=== PATIENT | female | born 1985 | race Caucasian/White ===

== ENCOUNTER 2020-02-22 10:58 | Emergency (ER) | payer BC ==
--- NOTE | 2020-02-22 11:38 | EDM.PDOC ---
ED HPI GENERAL MEDICAL PROBLEM - General Stated Complaint: HIGH BLOOD PRESSURE Time Seen by Provider: 02/22/20 11:15 Source of Information: Reports: Patient History Limitations: Reports: No Limitations - History of Present Illness INITIAL COMMENTS - FREE TEXT/NARRATIVE: c/o discomfort/burning in upper chest x 3w inc'd 1w ago and thought it was GERD went to clinic this AM, saw Patricia Donnelly, given NTG SL x 2 which did not help, has minimal discomfort now with EKG wnl with SR 68 pt ate supper last night, however said yesterday "was a blur", did eat bfast this AM no CP when she could up, then had the ache in the upper sternal area into neck R and L lateral neck, sometimes has pain radiating down her sternum no L sided CP, no arm pain dec'd with movement, present for a few minutes at a time pt's 50 yo aunt and godmother suddenly yesterday homeschooling 5 children (3 stepchildren, 2 of her own) as her mother has health, lost his job, has inc'd stress, PCP Dr Kebede referred her to counseling, says she is under inc'd stress BP 163/96 which has pt worried, "I have never had high BP" only med is fluoxetine smokes 10-11 cigs/d since age 16yo, 5y ago stopped for 2y - Related Data Allergies Allergy/AdvReac Type Severity Reaction Status Date / Time No Known Allergies Allergy Verified 06/02/14 11:04 Home Meds: Home Meds FLUoxetine [PROzac] 20 mg PO DAILY 06/02/14 [History] Past Medical History - Past Health History Medical/Surgical History: Denies Medical/Surgical History ED ROS GENERAL - Review of Systems Review Of Systems: See Below Constitutional: Reports: No Symptoms HEENT: Reports: No Symptoms Respiratory: Reports: No Symptoms Cardiovascular: Reports: No Symptoms Endocrine: Reports: No Symptoms GI/Abdominal: Reports: No Symptoms : Reports: No Symptoms Musculoskeletal: Reports: No Symptoms Skin: Reports: No Symptoms Neurological: Reports: No Symptoms Psychiatric: Reports: Anxiety Hematologic/Lymphatic: Reports: No Symptoms Immunologic: Reports: No Symptoms ED EXAM, GENERAL - Physical Exam Exam: See Below Exam Limited By: No Limitations General Appearance: Alert, WD/WN, No Apparent Distress Ears: Normal External Exam Nose: Normal Inspection, Normal Mucosa, No Blood Head: Atraumatic, Normocephalic Neck: Normal Inspection, Supple, Non-Tender, Full Range of Motion. No: Lymphadenopathy (R), Lymphadenopathy (L) Respiratory/Chest: No Respiratory Distress, Lungs Clear, Normal Breath Sounds, No Accessory Muscle Use Cardiovascular: Regular Rate, Rhythm, No Edema, No Murmur GI/Abdominal: Soft, Non-Tender, No Distention Back Exam: Normal Inspection, Full Range of Motion Extremities: Normal Inspection, Non-Tender, No Pedal Edema Neurological: Alert, Oriented, CN II-XII Intact, Normal Cognition, No Motor/Sensory Deficits Psychiatric: Other (visibly anxious, mildly anxious, texting frequently on phone, sitting on edge of bed) Skin Exam: Warm, Dry, Intact, Normal Color, No Rash Lymphatic: No Adenopathy Course - Orders/Labs/Meds Labs: Laboratory Tests 02/22/20 02/22/20 02/22/20 Range/Units 11:55 11:55 11:55 WBC 7.8 (4.5-12.0) X10-3/uL RBC 4.69 (3.23-5.20) x10(6)uL Hgb 12.0 (11.5-15.5) g/dL Hct 37.4 (30.0-51.3) % MCV 79.7 L (80-96) fL MCH 25.5 L (27.7-33.6) pg MCHC 32.0 L (32.2-35.4) g/dL RDW 14.3 (11.5-15.5) % Plt Count 296 (125-369) X10(3)uL MPV 8.5 (7.4-10.4) fL Neut % (Auto) 66.6 (46-82) % Lymph % (Auto) 22.7 (13-37) % Graham % (Auto) 7.7 (4-12) % Eos % (Auto) 3 (1.0-5.0) % Baso % (Auto) 0 (0-2) % Neut # (Auto) 5.2 (1.6-8.3) # Lymph # (Auto) 1.8 (0.6-5.0) # Graham # (Auto) 0.6 (0.0-1.3) # Eos # (Auto) 0.2 (0.0-0.8) # Baso # (Auto) 0.0 (0.0-0.2) # Sodium 140 (135-145) mmol/L Potassium 3.5 (3.5-5.3) mmol/L Chloride 102 (100-110) mmol/L Carbon Dioxide 26 (21-32) mmol/L BUN 8 (7-18) mg/dL Creatinine 0.8 (0.55-1.02) mg/dL Est Cr Clr Drug Dosing TNP Estimated GFR (MDRD) > 60 (>60) BUN/Creatinine Ratio 10.0 (9-20) Glucose 97 (80-116) mg/dL Calcium 9.2 (8.6-10.2) mg/dL Total Bilirubin 0.4 (0.1-1.3) mg/dL AST 20 (5-25) IU/L ALT 38 H (12-36) U/L Alkaline Phosphatase 92 (56-112) IU/L Troponin I 6.6 (4.0-60.3) pg/mL Total Protein 7.2 (6.0-8.0) g/dL Albumin 3.6 (3.5-5.2) g/dL Globulin 3.6 g/dL Albumin/Globulin Ratio 1.0 - Re-Assessments/Exams Free Text/Narrative Re-Assessment/Exam: 02/22/20 12:51 EKG and trop are neg pt reports she stood up 3w ago and hit her head on a cabinet, does not remember her daughter going for help and thinks she had LOC and a concussion, did have pain at site of injury for 3d, however no n/v or impairment cognition pt not interested in having a home BP cuff as she said that she is OCD and that it would only make things worse pt is concerned re her mild inc'd BP altho it has been normal in past (SBP 130 recently) pt reassured that her sxs are atypical for CV concerns and that her tests are normal, she reports CV disease in her family and asked re her cholesterol which she will need to check with her PCP pt does not appear to meet criteria for an EST altho she was advised to discuss this further with her PCP is sleeping well at night, does not appear to be a candidate for a short term course of lorazepam Departure - Departure Time of Disposition: 12:46 Disposition: Home, Self-Care 01 Condition: Good Clinical Impression: Anxiety, Grief, Esophageal spasm Instructions: Esophageal Spasm, Living With Anxiety, Managing Loss, Adult Referrals: Anthony Cervantes MD [Primary Care Provider] - Additional Instructions: Your EKG is normal. Your blood tests are essentially normal although they do suggest that you may benefit from an iron pill once a day. Your hemoglobin is 12.0 which is in the normal range. (It would need to be less than 11.5 to qualify as anemia.) Your heart and lungs are doing well. Overall, you are doing quite well despite your very busy schedule and recent unfortunate loss. See you PCP Dr Kebede in 4 days as scheduled for further recommendations. See your counselor in 8 days as scheduled. Return to Emergency Department if you are feeling worse.
[2020-02-22 16:10] VITALS: BP 140/97; PULSE 69
== END 2020-02-22 12:56 | disposition home or self-care (01) ==
LOC: FB.ED 10:58
DX: F41.9 Anxiety disorder, unspecified (principal); F43.21 Adjustment disorder with depressed mood; K22.4 Dyskinesia of esophagus; Z79.899 Other long term (current) drug therapy
CPT/HCPCS: 36415; 80053; 84484; 85025; 99283-25